=== PATIENT | female | born 1995 | race Caucasian/White ===

== ENCOUNTER 2020-04-23 16:51 | Emergency (ER) | payer SELFPAY ==
[2020-04-23 17:00] VITALS: BP 117/75
--- NOTE | 2020-04-23 17:20 | ER Document Report ---
ED General - General Chief Complaint: Toothache Stated Complaint: TOOTH PAIN Notes: Patient is a 24-year-old white female with no reported past medical history presents emergency department chief complaint of dental pain. She states she has had a problem with a broken tooth for the past 3 months on and off. States area seems be getting worse. Reports that the left lower molar regions. Admits to feeling swelling in that area making it difficult to chew. Pain is worse with eating and drinking on that affected side. Denies any difficulty with secretions or trouble swallowing. No shortness of breath. No headache neck pain or fever. TRAVEL OUTSIDE OF THE [place] IN LAST 30 DAYS: No - Related Data Allergies/Adverse Reactions: No Known Allergies Allergy (Verified 02/09/15 20:21) Past Medical History - Social History Smoking Status: Current Every Day Smoker Family History: Reviewed & Not Pertinent Past Surgical History: Reports: Hx Section - Immunizations Hx Diphtheria, Pertussis, Tetanus Vaccination: Yes Review of Systems - Review of Systems Constitutional: denies: Fever EENT: Dental problem Cardiovascular: denies: Chest pain Respiratory: denies: Cough Gastrointestinal: denies: Abdominal pain Genitourinary: denies: Burning Female Genitourinary: denies: Irregular period Musculoskeletal: denies: Neck pain Skin: denies: Change in color Hematologic/Lymphatic: denies: Anemia Neurological/Psychological: denies: Gait changes Physical Exam - Vital signs Vitals: Temp Pulse Resp BP Pulse Ox 99.0 F 95 18 117/75 100 04/23/20 16:59 04/23/20 16:59 04/23/20 16:59 04/23/20 16:59 04/23/20 16:59 - General General appearance: Appears well, Alert In distress: None - HEENT Head: Normocephalic, Atraumatic Eyes: Normal Conjunctiva: Normal Extraocular movements intact: Yes Ears: Normal External canal: Normal Tympanic membrane: Normal Nasal: Normal Teeth diagram: 1 - Fractured tooth Pharynx: Other - Tenderness to percussion affected tooth shown above. Some surrounding gingival erythema. No gingival abscess or drainage. No trismus. Patent airway. Handling secretions well. No sublingual or submental swelling. Neck: Normal, Lymphadenopathy - Respiratory Respiratory status: No respiratory distress Chest status: Nontender Breath sounds: Normal Chest palpation: Normal - Cardiovascular Rhythm: Regular Heart sounds: Normal auscultation - Neurological Neuro grossly intact: Yes Cognition: Normal Orientation: AAOx4 - Psychological Associated symptoms: Normal affect, Normal mood - Skin Skin Temperature: Warm Skin Moisture: Dry Skin Color: Normal Course - Re-evaluation Re-evalutation: 04/23/20 17:35 [facility] aware pulled, showing no chronic prescription medications that are controlled. Patient be given a short course of tramadol. Started on Pen-Vee K and started on Peridex. Encouraged follow-up with dentistry. Advise she return here or any ER immediately with any new, persistent or worsening symptoms. She verbalized understood and agreed. - Vital Signs Vital signs: Temp Pulse Resp BP Pulse Ox 99.0 F 95 18 117/75 100 04/23/20 16:59 04/23/20 16:59 04/23/20 16:59 04/23/20 16:59 04/23/20 16:59 Discharge - Discharge Clinical Impression: Dental abscess, Dentalgia Condition: Stable Disposition: HOME, SELF-CARE Instructions: Toothache ([facility]) Additional Instructions: Follow-up with dentist and/or your regular doctor in 2 to 3 days for reevalua tion. Return here or any ER immediately with any new, persistent or worsening symptoms. Prescriptions: Tramadol HCl [Ultram 50 mg Tablet] 50 mg PO Q6HP PRN #12 tablet PRN Reason: Pain Scale Of 4 Penicillin V Potassium [Penicillin Vk 500 mg Tablet] 500 mg PO QID #40 tablet Chlorhexidine Gluconate [Peridex] 15 ml MM BID #120 mouthwash Referrals: [facility] [NO LOCAL MD] - Follow up as needed ENDY COLE DDS [NO LOCAL MD] - Follow up as needed
== END 2020-04-23 17:25 | disposition home or self-care (01) ==
LOC: ER 16:51
DX: K04.7 Periapical abscess without sinus (principal); F17.200 Nicotine dependence, unspecified, uncomplicated
CPT/HCPCS: 99283